=== PATIENT | female | born 1945 | race Caucasian/White ===

== ENCOUNTER 2017-05-11 21:34 | Inpatient (IN) | payer MEDICARE, MEDICAID ==
[~2017-05-11] VITALS: Ht 157.5 cm; Wt 69.9 kg
[~2017-05-11 21:34] MED LIST: ACET650T10 PO; FAMO-132 PO; FURO-151 PO; MAGN400O6 PO; PHEN100C4 PO; POTA8TAB3 PO
[2017-05-11 22:12] LABS: BASOPHILS # (AUTO) 0.1 K/uL (0.0-8.0); BASOPHILS % (AUTO) 1.3 % (0.0-2.0); EOSINOPHILS % (AUTO) 0.7 % (0.0-7.0); HEMATOCRIT 38.6 % (37-47); HEMOGLOBIN 12.8 G/DL (12.0-16.0); LYMPHOCYTES # (AUTO) 1.5 K/UL (0.8-4.8); LYMPHOCYTES % (AUTO) 24.5 % (20.5-51.5); MEAN CORPUSCULAR HEMOGLOBIN 27.7 UUG (27.0-31.0); MEAN CORPUSCULAR HGB CONC 33 g/dL (32.0-37.0); MEAN CORPUSCULAR VOLUME 83.4 FL (81.0-99.0); MONOCYTES # (AUTO) 0.7 K/UL (0.1-1.30); NEUTROPHILS # (AUTO) 3.9 K/UL (1.8-8.9); NEUTROPHILS % (AUTO) 62.5 % (38.5-71.5); PLATELET COUNT (AUTO) 197 K/UL (150-450); RED BLOOD CELL COUNT(AUTO) 4.63 MIL/UL (4.2-5.4); WHITE BLOOD COUNT (AUTO) 6.2 K/UL (4.0-11.2)
[2017-05-11 22:16] LABS: CARBON DIOXIDE 18 mmol/L (21-32); CHLORIDE 99 mmol/L (98-107); CREATININE 1.3 mg/dL (0.6-1.3); GLUCOSE 92 mg/dL (74-106); POTASSIUM 3.4 mmol/L (3.5-5.1); UREA NITROGEN, BLOOD 11 mg/dL (7-18)
[2017-05-11 22:22] LABS: ACETAMINOPHEN < 2.0 ug/mL (10-30); ALANINE AMINOTRANSFERASE 33 U/L (14-59); ALKALINE PHOSPHATASE 107 U/L (50-136); ASPARTATE AMINOTRANSFERASE 32 U/L (15-37); BILIRUBIN,DIRECT 0.2 mg/dL (0.0-0.2); BILIRUBIN,TOTAL 0.5 mg/dL (0.2-1.0); TOTAL PROTEIN, SERUM 7.6 g/dL (6.4-8.2)
[2017-05-11 22:23] LABS: ETHANOL < 3 MG/DL (0-0)
[2017-05-11] MEDS ORDERED: PANT40TA4 PO (22:44)
[2017-05-11] MEDS ORDERED: HALO2TAB PO (22:44)
[2017-05-11] MEDS ORDERED: METO25TA6 PO (22:44)
[2017-05-11] MEDS ORDERED: IPRA3AMP IH (22:44)
[2017-05-11] MEDS ORDERED: BENZ0.5T3 PO (22:44)
[2017-05-11] MEDS ORDERED: MIRT15TA PO (22:44)
[2017-05-11 22:49] LABS: THYROID STIMULATING HORMONE 2.694 mIU/mL (0.358-3.740)
--- NOTE | 2017-05-11 22:53 | NUR ---
Pt. admitted to GPS, under care of Dr. Vital Belongs List completed
[2017-05-12] MEDS ORDERED: MAG HYDROX/AL HYDROX/SIMETH 30 ML LIQUID UDC PO PRN
[2017-05-12] MEDS ORDERED: TEMAZEPAM 7.5 MG CAPSULE PO PRN
[2017-05-12 00:56] VITALS: BP 114/68
--- NOTE | 2017-05-12 03:10 | NUR ---
ADMITTING NOTE: GPS /NSG Patient is a 69 yr old female admitted on a 5150 for Grave Disability from [facility] under the care of Dr. Vital and Dr. Vasquez. Patient arrived to the unit via wheelchair alert, oriented to name, place, time, and situation. Compliant with interview process in no acute physical distress. Patient according to the hold has been refusing food and water. Psychiatrist and physician notified of admission. Initiate plan of care, monitor for safety Q15 minutes times twenty-four hours then Q30 minutes for safety. Addendum: 05/12/17 at 0319 by LETA ESTRADA RN Patient arrived via gurney.
[2017-05-12] MEDS ORDERED: LORAZEPAM 0.5 MG TABLET PO PRN ×2 (04:00)
[2017-05-12 07:30] VITALS: BP 109/69
[2017-05-12] MEDS ORDERED: PNEUMOCOCCAL 23-VAL P-SAC VAC 0.5 ML VIAL IM ONE (13:00)
[2017-05-12 15:24] VITALS: BP 124/73
[2017-05-12] MEDS: PHENYTOIN SODIUM EXTENDED 100 MG CAPSULE.SA PO SCH ×2 (15:48→20:09)
[2017-05-12] MEDS: HALOPERIDOL 2 MG TABLET PO SCH (17:49)
[2017-05-12] MEDS: BENZTROPINE MESYLATE 0.5 MG TABLET PO SCH (17:49)
[2017-05-12 20:05] VITALS: BP 104/74
[2017-05-12] MEDS: MIRTAZAPINE 15 MG TABLET PO SCH (20:09)
[2017-05-12] MEDS: METOPROLOL TARTRATE 25 MG TABLET PO SCH (20:09)
[2017-05-12] MEDS: ENOXAPARIN SODIUM 40 MG/0.4 ML DISP.SYRIN SQ SCH (20:10)
[2017-05-13] MEDS: PANTOPRAZOLE SODIUM 40 MG TABLET.DR PO SCH (06:22)
[2017-05-13 07:30] VITALS: BP 113/74
[2017-05-13] MEDS: BENZTROPINE MESYLATE 0.5 MG TABLET PO SCH ×3 (08:45→16:41)
[2017-05-13] MEDS: HALOPERIDOL 2 MG TABLET PO SCH ×2 (08:45→16:42)
[2017-05-13] MEDS: PHENYTOIN SODIUM EXTENDED 100 MG CAPSULE.SA PO SCH ×2 (08:45→20:27)
[2017-05-13] MEDS: METOPROLOL TARTRATE 25 MG TABLET PO SCH ×2 (08:46→20:27)
[2017-05-13 15:18] VITALS: BP 97/67
[2017-05-13 20:00] VITALS: BP 116/67
[2017-05-13] MEDS: MIRTAZAPINE 15 MG TABLET PO SCH (20:27)
[2017-05-13] MEDS: ENOXAPARIN SODIUM 40 MG/0.4 ML DISP.SYRIN SQ SCH (20:31)
--- NOTE | 2017-05-14 00:05 | NUR ---
GPS: Pt.still awake at this time. Restoril 7.5mg offered for insomnia but refused. No c/o pain verbalized. Quiet environment provided to facilitate sleep. Will continue to monitor.
[2017-05-14] MEDS: PANTOPRAZOLE SODIUM 40 MG TABLET.DR PO SCH (06:20)
[2017-05-14 07:02] LABS: BASOPHILS % (AUTO) 0.4 % (0.0-2.0); EOSINOPHILS # (AUTO) 0.1 K/uL (0.0-0.7); HEMATOCRIT 35.4 % (37-47); LYMPHOCYTES # (AUTO) 2.3 K/UL (0.8-4.8); LYMPHOCYTES % (AUTO) 32.8 % (20.5-51.5); MEAN CORPUSCULAR HEMOGLOBIN 28.3 UUG (27.0-31.0); MEAN CORPUSCULAR HGB CONC 34 g/dL (32.0-37.0); MEAN CORPUSCULAR VOLUME 83.6 FL (81.0-99.0); MONOCYTES # (AUTO) 0.6 K/UL (0.1-1.30); MONOCYTES % (AUTO) 8.6 % (0.0-11.0); NEUTROPHILS # (AUTO) 4.1 K/UL (1.8-8.9); NEUTROPHILS % (AUTO) 57.2 % (38.5-71.5); PLATELET COUNT (AUTO) 172 K/UL (150-450); RED BLOOD CELL COUNT(AUTO) 4.24 MIL/UL (4.2-5.4); WHITE BLOOD COUNT (AUTO) 7.1 K/UL (4.0-11.2)
[2017-05-14 07:12] LABS: POTASSIUM 2.9 mmol/L (3.5-5.1)
[2017-05-14 07:29] LABS: CREATININE 0.8 mg/dL (0.6-1.3); MAGNESIUM 1.6 mg/dL (1.8-2.4); PHOSPHOROUS 2.5 mg/dL (2.5-4.9)
[2017-05-14 07:30] VITALS: BP 98/52
[2017-05-14] MEDS: PHENYTOIN SODIUM EXTENDED 100 MG CAPSULE.SA PO SCH ×2 (08:15→20:15)
[2017-05-14] MEDS: BENZTROPINE MESYLATE 0.5 MG TABLET PO SCH ×3 (08:15→16:41)
[2017-05-14] MEDS: HALOPERIDOL 2 MG TABLET PO SCH ×2 (08:15→16:41)
[2017-05-14] MEDS: METOPROLOL TARTRATE 25 MG TABLET PO SCH ×2 (08:15→20:16)
[2017-05-14] MEDS ORDERED: MAGNESIUM OXIDE 400 MG TABLET PO ONE (10:45)
[2017-05-14] MEDS: POTASSIUM CHLORIDE 20 MEQ POWDER PACKET PO SCH ×2 (11:00→13:00)
--- NOTE | 2017-05-14 14:19 | NUR ---
Initial discharge instructions: The pt resides at [facility] [[address] [place] [address]; ]. Spoke with Kain at the facility who stated that they will accept the patient back once she is stable. SS spoke with the patient's son Ten Camarillo who stated that he would like for the patient to return to the facility upon discharge. SS will speak with patient, family, and MD regarding most appropriate discharge plan. SS will form a safe and proper discharge.
[2017-05-14] MEDS: POTASSIUM CHLORIDE 10 MEQ CAPSULE.SA PO SCH ×2 (14:51→16:41)
[2017-05-14 17:07] VITALS: BP 136/77
[2017-05-14 20:00] VITALS: BP 127/78
[2017-05-14] MEDS: MIRTAZAPINE 15 MG TABLET PO SCH (20:15)
[2017-05-14] MEDS: ENOXAPARIN SODIUM 40 MG/0.4 ML DISP.SYRIN SQ SCH (20:20)
[2017-05-15] MEDS: PANTOPRAZOLE SODIUM 40 MG TABLET.DR PO SCH (06:27)
[2017-05-15 07:30] VITALS: BP 98/70
[2017-05-15 07:32] LABS: CREATININE 0.8 mg/dL (0.6-1.3); POTASSIUM 3.6 mmol/L (3.5-5.1)
[2017-05-15] MEDS: PHENYTOIN SODIUM EXTENDED 100 MG CAPSULE.SA PO SCH ×2 (08:34→20:25)
[2017-05-15] MEDS: HALOPERIDOL 2 MG TABLET PO SCH ×2 (08:34→17:03)
[2017-05-15] MEDS: BENZTROPINE MESYLATE 0.5 MG TABLET PO SCH ×3 (08:34→17:03)
[2017-05-15] MEDS: METOPROLOL TARTRATE 25 MG TABLET PO SCH ×2 (08:35→20:25)
[2017-05-15 15:56] VITALS: BP 124/67
[2017-05-15 20:00] VITALS: BP 106/51
[2017-05-15] MEDS: MIRTAZAPINE 15 MG TABLET PO SCH (20:25)
[2017-05-15] MEDS: LORAZEPAM 1 MG TABLET PO PRN (23:26)
[2017-05-16] MEDS: PANTOPRAZOLE SODIUM 40 MG TABLET.DR PO SCH (06:40)
[2017-05-16 07:25] LABS: BASOPHILS % (AUTO) 0.2 % (0.0-2.0); EOSINOPHILS # (AUTO) 0.1 K/uL (0.0-0.7); HEMATOCRIT 32.5 % (37-47); HEMOGLOBIN 10.5 G/DL (12.0-16.0); LYMPHOCYTES # (AUTO) 1.3 K/UL (0.8-4.8); LYMPHOCYTES % (AUTO) 21.6 % (20.5-51.5); MEAN CORPUSCULAR HEMOGLOBIN 27.7 UUG (27.0-31.0); MEAN CORPUSCULAR HGB CONC 32 g/dL (32.0-37.0); MEAN CORPUSCULAR VOLUME 85.6 FL (81.0-99.0); MONOCYTES # (AUTO) 0.5 K/UL (0.1-1.30); MONOCYTES % (AUTO) 8.4 % (0.0-11.0); NEUTROPHILS # (AUTO) 4.2 K/UL (1.8-8.9); NEUTROPHILS % (AUTO) 68.8 % (38.5-71.5); PLATELET COUNT (AUTO) 170 K/UL (150-450); WHITE BLOOD COUNT (AUTO) 6.1 K/UL (4.0-11.2)
[2017-05-16 07:41] LABS: BILIRUBIN,TOTAL 0.2 mg/dL (0.2-1.0); CREATININE 0.7 mg/dL (0.6-1.3); MAGNESIUM 1.7 mg/dL (1.8-2.4); PHOSPHOROUS 2.9 mg/dL (2.5-4.9); POTASSIUM 3.8 mmol/L (3.5-5.1); TOTAL PROTEIN, SERUM 6.4 g/dL (6.4-8.2)
[2017-05-16 07:48] LABS: THYROID STIMULATING HORMONE 2.972 mIU/mL (0.358-3.740)
[2017-05-16 08:00] VITALS: BP 128/71
[2017-05-16] MEDS ORDERED: MAGNESIUM OXIDE 400 MG TABLET PO ONE (10:15)
[2017-05-16] MEDS: METOPROLOL TARTRATE 25 MG TABLET PO SCH ×2 (10:20→21:00)
[2017-05-16] MEDS: BENZTROPINE MESYLATE 1 MG TABLET PO SCH ×2 (10:20→18:00)
[2017-05-16] MEDS: PHENYTOIN SODIUM EXTENDED 100 MG CAPSULE.SA PO SCH ×2 (10:21→21:29)
[2017-05-16] MEDS: HALOPERIDOL 5 MG TABLET PO SCH ×2 (10:21→18:01)
[2017-05-16 12:34] LABS: IRON, SERUM 53 ug/dL (50-175)
[2017-05-16 15:00] VITALS: BP 89/50
[2017-05-16 16:00] VITALS: BP 117/54
[2017-05-16 21:20] VITALS: BP 92/62
[2017-05-16] MEDS: MIRTAZAPINE 15 MG TABLET PO SCH (21:29)
[2017-05-16] MEDS: ACETAMINOPHEN 325 MG TABLET PO PRN (21:48)
[2017-05-17] MEDS: PANTOPRAZOLE SODIUM 40 MG TABLET.DR PO SCH (06:15)
--- NOTE | 2017-05-17 06:40 | NUR ---
Pt's temp elevated at beginning of shift at 99.7, Tylenol 650mg administered with good effect. Pt remained calm and cooperative entire shift. A+Ox2 to name and place, marginally forgetful and confused. In no acute distress. A.M. shower taken.
[2017-05-17 07:30] VITALS: BP 127/78
[2017-05-17] MEDS: METOPROLOL TARTRATE 25 MG TABLET PO SCH ×2 (09:00→21:00)
[2017-05-17] MEDS: HALOPERIDOL 5 MG TABLET PO SCH ×2 (09:39→17:29)
[2017-05-17] MEDS: BENZTROPINE MESYLATE 1 MG TABLET PO SCH ×2 (09:40→17:29)
[2017-05-17] MEDS: PHENYTOIN SODIUM EXTENDED 100 MG CAPSULE.SA PO SCH ×2 (09:40→20:23)
[2017-05-17 16:00] VITALS: BP 126/79
[2017-05-17] MEDS: ACETAMINOPHEN 325 MG TABLET PO PRN (20:22)
[2017-05-17 20:24] VITALS: BP 122/68
[2017-05-17] MEDS: MIRTAZAPINE 15 MG TABLET PO SCH (20:24)
--- NOTE | 2017-05-17 22:00 | NUR ---
HS lopressor held. Last BP check was 106/59. Pt asymptomatic.
[2017-05-18] MEDS: PANTOPRAZOLE SODIUM 40 MG TABLET.DR PO SCH (06:29)
[2017-05-18 07:30] VITALS: BP 109/76
[2017-05-18] MEDS: METOPROLOL TARTRATE 25 MG TABLET PO SCH ×2 (09:00→20:11)
[2017-05-18] MEDS: HALOPERIDOL 5 MG TABLET PO SCH ×2 (09:54→17:35)
[2017-05-18] MEDS: PHENYTOIN SODIUM EXTENDED 100 MG CAPSULE.SA PO SCH ×2 (09:54→20:10)
[2017-05-18] MEDS: BENZTROPINE MESYLATE 1 MG TABLET PO SCH ×2 (09:54→17:35)
[2017-05-18] MEDS: ACETAMINOPHEN 325 MG TABLET PO PRN (20:10)
[2017-05-18] MEDS: MIRTAZAPINE 15 MG TABLET PO SCH (20:11)
[2017-05-18 20:28] VITALS: BP 119/65
--- NOTE | 2017-05-18 22:00 | NUR ---
received to care, sitting at her bedside, isolative, but pleasant upon approach. compliant with medications, and staff direction. PRN tylenol was given at 2009, for lower back pain, 03/31. by 2129, she reported good relief, 12/01. as of 2199, she appears to be asleep. no distress noted. will continue to monitor closely.
--- NOTE | 2017-05-19 06:00 | NUR ---
slept 2 hours total. was awake most of the night, but calm, and quiet. PRN medication was offered several times, but she declined, each time. as of 0600, she appears to be asleep. no distress noted.
[2017-05-19] MEDS: PANTOPRAZOLE SODIUM 40 MG TABLET.DR PO SCH (06:35)
[2017-05-19 07:30] VITALS: BP 104/75
[2017-05-19 07:37] LABS: BASOPHILS % (AUTO) 0.5 % (0.0-2.0); EOSINOPHILS # (AUTO) 0.1 K/uL (0.0-0.7); EOSINOPHILS % (AUTO) 2.3 % (0.0-7.0); HEMATOCRIT 31.4 % (37-47); HEMOGLOBIN 10.6 G/DL (12.0-16.0); LYMPHOCYTES # (AUTO) 2.2 K/UL (0.8-4.8); LYMPHOCYTES % (AUTO) 33.8 % (20.5-51.5); MEAN CORPUSCULAR HEMOGLOBIN 28.8 UUG (27.0-31.0); MEAN CORPUSCULAR HGB CONC 34 g/dL (32.0-37.0); MEAN CORPUSCULAR VOLUME 85.7 FL (81.0-99.0); MONOCYTES # (AUTO) 0.8 K/UL (0.1-1.30); MONOCYTES % (AUTO) 11.9 % (0.0-11.0); NEUTROPHILS # (AUTO) 3.4 K/UL (1.8-8.9); NEUTROPHILS % (AUTO) 51.5 % (38.5-71.5); PLATELET COUNT (AUTO) 222 K/UL (150-450); RED BLOOD CELL COUNT(AUTO) 3.66 MIL/UL (4.2-5.4); WHITE BLOOD COUNT (AUTO) 6.5 K/UL (4.0-11.2)
[2017-05-19 08:04] LABS: BILIRUBIN,TOTAL 0.2 mg/dL (0.2-1.0); CREATININE 0.8 mg/dL (0.6-1.3); PHOSPHOROUS 4.2 mg/dL (2.5-4.9); POTASSIUM 3.8 mmol/L (3.5-5.1); TOTAL PROTEIN, SERUM 6.6 g/dL (6.4-8.2)
[2017-05-19] MEDS: HALOPERIDOL 5 MG TABLET PO SCH ×2 (08:18→17:21)
[2017-05-19] MEDS: PHENYTOIN SODIUM EXTENDED 100 MG CAPSULE.SA PO SCH ×2 (08:18→20:16)
[2017-05-19] MEDS: METOPROLOL TARTRATE 25 MG TABLET PO SCH ×2 (08:18→20:17)
[2017-05-19] MEDS: BENZTROPINE MESYLATE 1 MG TABLET PO SCH ×2 (08:19→17:21)
[2017-05-19] MEDS: MAGNESIUM HYDROXIDE 30 ML LIQUID UDC PO PRN (12:40)
[2017-05-19 16:00] VITALS: BP 125/49
[2017-05-19 20:04] VITALS: BP 111/59
[2017-05-19] MEDS: MIRTAZAPINE 15 MG TABLET PO SCH (20:17)
--- NOTE | 2017-05-19 22:00 | NUR ---
received to care, lying in bed, isolative, but pleasant upon approach. compliant with medications, and staff direction. remains isolative, and non interactive, with peers. as of 2199, she appears to be asleep. no distress noted. will continue to monitor closely.
--- NOTE | 2017-05-20 06:00 | NUR ---
slept 8.0 hours, total. continues to sleep. easy to awaken. no distress noted.
[2017-05-20] MEDS: PANTOPRAZOLE SODIUM 40 MG TABLET.DR PO SCH (06:20)
[2017-05-20 07:30] VITALS: BP 111/75
[2017-05-20] MEDS: PHENYTOIN SODIUM EXTENDED 100 MG CAPSULE.SA PO SCH ×2 (08:32→20:30)
[2017-05-20] MEDS: BENZTROPINE MESYLATE 1 MG TABLET PO SCH ×2 (08:33→16:32)
[2017-05-20] MEDS: HALOPERIDOL 5 MG TABLET PO SCH ×2 (08:33→16:32)
[2017-05-20] MEDS: METOPROLOL TARTRATE 25 MG TABLET PO SCH ×2 (08:33→20:31)
[2017-05-20 15:29] VITALS: BP 115/66
[2017-05-20] MEDS: MAGNESIUM HYDROXIDE 30 ML LIQUID UDC PO PRN (16:19)
[2017-05-20 20:00] VITALS: BP 117/63
[2017-05-20] MEDS: MIRTAZAPINE 15 MG TABLET PO SCH (20:30)
--- NOTE | 2017-05-20 21:30 | NUR ---
Pt received AOx2. Observed sitting up in bed, no acute distress noted. Compliant with medications. No aggressive behavior noted. Will continue to monitor for safety.
[2017-05-21] MEDS: PANTOPRAZOLE SODIUM 40 MG TABLET.DR PO SCH (06:39)
[2017-05-21 07:30] VITALS: BP 129/67
[2017-05-21] MEDS: BENZTROPINE MESYLATE 1 MG TABLET PO SCH ×2 (08:13→17:19)
[2017-05-21] MEDS: HALOPERIDOL 5 MG TABLET PO SCH ×2 (08:13→17:19)
[2017-05-21] MEDS: METOPROLOL TARTRATE 25 MG TABLET PO SCH ×2 (08:13→20:23)
[2017-05-21] MEDS: PHENYTOIN SODIUM EXTENDED 100 MG CAPSULE.SA PO SCH ×2 (08:13→20:20)
[2017-05-21 15:34] VITALS: BP 115/75
[2017-05-21] MEDS: MIRTAZAPINE 15 MG TABLET PO SCH (20:22)
--- NOTE | 2017-05-21 21:09 | NUR ---
PT RECEIVED IN HER ROOM SITTING UP ON HER BED AWAKE, A/O X2, GUARDED, PASSIVE AND SUSPICIOUS, MAY BE RESPONDING TO INTERNAL STIMULI, DENIES PAIN/HI, TOOK MEDS ORDERED, WILL CONTINUE TO MONITOR CLOSELY.
[2017-05-22 00:04] VITALS: BP 119/74
[2017-05-22] MEDS: ACETAMINOPHEN 325 MG TABLET PO PRN (03:20)
[2017-05-22] MEDS: LORAZEPAM 1 MG TABLET PO PRN (03:20)
[2017-05-22] MEDS: PANTOPRAZOLE SODIUM 40 MG TABLET.DR PO SCH (06:46)
[2017-05-22 07:30] VITALS: BP 124/85
[2017-05-22] MEDS: HALOPERIDOL 5 MG TABLET PO SCH (08:12)
[2017-05-22] MEDS: BENZTROPINE MESYLATE 1 MG TABLET PO SCH (08:12)
[2017-05-22 08:13] VITALS: BP 124/85
[2017-05-22] MEDS: PHENYTOIN SODIUM EXTENDED 100 MG CAPSULE.SA PO SCH (08:13)
[2017-05-22] MEDS: METOPROLOL TARTRATE 25 MG TABLET PO SCH (08:13)
--- NOTE | 2017-05-22 09:24 | NUR ---
DC Note: The patient will be discharged today back to [facility] ([facility]) [[address] [place] [address]; ] via ambulance. Spoke with Kain at the facility who stated that they will accept the patient back once she is stable. SS spoke with the patient's son Ten Camarillo who stated that he would like for the patient to return to the facility. The patient will follow-up with casino controller Dr. Cole and psychiatrist Dr. Vital at the facility.
--- NOTE | 2017-05-22 14:45 | NUR ---
GPS/RN - DISCHARGE NOTE patient is compliant and cooperative no agitated behavior , denies anySI/HI, no hallucinations, no delusions. improved intake snacks provided in between meals. instructed in discharge and follow up. The patient will be discharged today back to [facility] ([facility]) [[address] [place] [address]; ] via ambulance. The patient will follow-up with director of entertainment Dr. Cole and psychiatrist Dr. Vital at the facility. belongings returned and accounted for. discharge report given to REDDY Ly Director Of Casework Services at Facility.
--- NOTE | 2017-05-22 14:45 | NUR ---
discharge in stable condition
== END 2017-05-22 14:45 | DRG 882 ==
LOC: ER 21:37 → GPS 22:57
PROVIDERS: ADMIT Psychiatry & Neurology Psychiatry; ATTEND Psychiatry & Neurology Psychiatry
DX: F45.0 Somatization disorder (principal); E11.65 Type 2 diabetes mellitus with hyperglycemia; E87.2 Acidosis; E44.0 Moderate protein-calorie malnutrition; F25.9 Schizoaffective disorder, unspecified; F44.9 Dissociative and conversion disorder, unspecified; Z73.6 Limitation of activities due to disability; G40.909 Epilepsy, unspecified, not intractable, without status epilepticus; F32.9 Major depressive disorder, single episode, unspecified; J44.9 Chronic obstructive pulmonary disease, unspecified; I10 Essential (primary) hypertension; D64.9 Anemia, unspecified; E83.42 Hypomagnesemia; E87.6 Hypokalemia; F39 Unspecified mood [affective] disorder; K21.9 Gastro-esophageal reflux disease without esophagitis; K59.00 Constipation, unspecified; Z79.899 Other long term (current) drug therapy; Z87.11 Personal history of peptic ulcer disease; I50.9 Heart failure, unspecified
CPT/HCPCS: 36415; 83550; 83735; 84100; 84443; 85025; 90732; 92523; 97161; G0480; G0480-TC; J1650